=== PATIENT | male | born 1945 | race American Indian/Alaskan Native ===

== ENCOUNTER 2020-07-05 06:04 | Observation (INO) | payer OTHER ==
[2020-07-01 14:25] LABS: Hematocrit 40.3 % (35.5-45.6); Hemoglobin 13.5 gm/dl (11.8-15.2); Mean Corpuscular HGB Conc 34 % (32-34); Mean Corpuscular Volume 89 fl (84-94); Platelet Count 254 K/mm3 (140-440); Red Blood Count 4.52 M/mm3 (3.65-5.03); Red Cell Distribution Width 15.2 % (13.2-15.2)
[2020-07-01 14:43] LABS: Alanine Aminotransferase 19 units/L (7-56); Albumin 4.2 g/dL (3.9-5); BUN/Creatinine Ratio 7; Blood Urea Nitrogen 8 mg/dL (9-20); Calcium 9.3 mg/dL (8.4-10.2); Hemolysis Index 29
[~2020-07-05 06:04] MED LIST: ACETAMINOPHEN 500 MG TAB PO SCH; GABAPENTIN 300 MG CAP PO NR; ceFAZolin/STERILE WATER 2 GM/20 ML SYRINGE IV NR
[2020-07-05] MEDS: LACTATED RINGERS 1,000 ML IV SCH (06:45)
[2020-07-05] MEDS ORDERED: THROMBIN (RECOMBINANT) 5,000 UNIT VIAL TP ONE ×2 (07:31→10:00)
[2020-07-05] MEDS ORDERED: CALCIUM CHLORIDE 1,000 MG/10 ML SYRINGE IV ONE ×2 (07:31→10:00)
[2020-07-05] MEDS ORDERED: CITRIC ACID-SOD CITRATE 500 ML IV ONE (07:31)
[2020-07-05] MEDS ORDERED: METHYLENE BLUE 50 MG/10 ML AMP ONE (07:31)
--- NOTE | 2020-07-05 07:35 | Anesthesia Consultation ---
Anesthesia Consult and Med Hx Date of service: 07/05/20 - Airway Anesthetic Teeth Evaluation: Poor ROM Head & Neck: Adequate Mental/Hyoid Distance: Adequate Mallampati Class: Class II Intubation Access Assessment: Probably Good - Pulmonary Exam CTA: Yes - Cardiac Exam Cardiac Exam: RRR - Pre-Operative Health Status ASA Pre-Surgery Classification: ASA3 Proposed Anesthetic Plan: General - Pulmonary Hx Smoking: Yes (CIGARS 1/DAY) Hx Respiratory Symptoms: No Hx Sleep Apnea: No (BRUNO PRE SCREEN HIGH RISK) - Cardiovascular System Hx Hypertension: Yes (took antihypertensives this morning) Hx Heart Attack/AMI: No Hx Percutaneous Transluminal Coronary Angioplasty (PTCA): No Hx Cardia Arrhythmia: No - Central Nervous System CVA: No Hx Psychiatric Problems: Yes (PTSD) - Gastrointestinal Hx Gastroesophageal Reflux Disease: Yes - Endocrine Hx Renal Disease: Yes (CKD 3; 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 No hx anesthetic complications. Patient has extensive allergy list including multiple antihypertensives. He reports that he does not remember the exact reactions to each medication but that most reactions were either increased breathing or increased BP. No rash, hives, difficulty breathing, tongue/throat swelling, or anaphylactic reactions.
[2020-07-05] MEDS ORDERED: HYDROmorphone 1 MG/1 ML INJ IV PRN (07:36)
--- NOTE | 2020-07-05 07:36 | Anesthesia Day of Surgery ---
Anesthesia Day of Surgery - Day of Surgery Patient Examined: Yes Patient H&P Reviewed: Yes Patient is NPO: Yes
[2020-07-05] MEDS ORDERED: SUCCINYLCHOLINE CHLORIDE 200 MG/10 ML INJ MDV ONE (07:48)
[2020-07-05] MEDS ORDERED: dexAMETHasone 20 MG/5 ML VIAL ONE (07:48)
[2020-07-05] MEDS ORDERED: fentaNYL 100 MCG/2 ML INJ ONE (07:48)
[2020-07-05] MEDS ORDERED: LIDOCAINE MPF (2%) 20 MG/1 ML VIAL 5 ML ONE (07:48)
[2020-07-05] MEDS ORDERED: PHENYLEPHRINE 10 MG/1 ML INJ SDV ONE (07:48)
[2020-07-05] MEDS ORDERED: ONDANSETRON 4 MG/2 ML INJ ONE (07:48)
[2020-07-05] MEDS ORDERED: ROCURONIUM 50 MG/5 ML INJ IV ONE (07:48)
[2020-07-05] MEDS ORDERED: NEOSTIGMINE 10MG/10 ML INJ MDV ONE (07:48)
[2020-07-05] MEDS ORDERED: GLYCOPYRROLATE 0.4 MG/2 ML INJ ONE (07:48)
[2020-07-05] MEDS ORDERED: propofoL 200 MG/20 ML VIAL IV ONE (07:49)
[2020-07-05] MEDS ORDERED: ePHEDrine SULFATE 50 MG/1 ML INJ ONE (08:16)
[2020-07-05] MEDS ORDERED: BUPIVACAINE/PF (0.5%) 5 MG/1 ML 30 ML VIAL INFILTRATI ONE (08:49)
[2020-07-05] MEDS ORDERED: HYDROmorphone 1 MG/1 ML INJ ONE (08:50)
[2020-07-05] MEDS ORDERED: SODIUM CHLORIDE 0.9% IRRIG SOLN 2000 ML IR ONE (10:00)
[2020-07-05] MEDS ORDERED: WATER FOR IRRIG STERILE 1,500 ML BOTTLE IR ONE (10:00)
[2020-07-05] MEDS ORDERED: CITRIC ACID-SOD CITRATE SOLN 500 ML IV SOLN IV ONE (10:00)
[2020-07-05] MEDS ORDERED: LACTATED RINGERS 1,000 ML ONE (10:08)
--- NOTE | 2020-07-05 10:36 | Short Stay Summary ---
Short Stay Documentation Date of service: 07/05/20 - History H&P: obtained from office - Allergies and Medications Current Medications: Allergies clonidine Allergy (Severe, Verified 07/01/20 19:37) Hives RAISES BP,HIVES,AFFECTS NERVES Latex, Natural Rubber Allergy (Severe, Verified 07/01/20 19:37) Hives RASH atenolol Adverse Reaction (Severe, Verified 06/30/20 11:36) Unknown ELEVATES BP flunisolide Adverse Reaction (Severe, Verified 06/30/20 11:36) Unknown hydralazine Adverse Reaction (Severe, Verified 06/30/20 11:36) Unknown ELEVATES BP irbesartan Adverse Reaction (Severe, Verified 06/30/20 11:36) Unknown ELEVATES BP lisinopril Adverse Reaction (Severe, Verified 06/30/20 11:36) Unknown ELEVATES BP nifedipine Adverse Reaction (Severe, Verified 06/30/20 11:36) Unknown ELEVATES BP Penicillins Adverse Reaction (Unknown, Verified 06/30/20 11:25) Unknown ADHESIVES ---PAPER TAPE [place] Allergy (Severe, Uncoded 07/01/20 19:37) Hives HYDROCHLOROTHIAZIDE/TRIAMTERENE Adverse Reaction (Severe, Uncoded 06/30/20 11:36) Unknown ELEVATED BP Home Medications Medication Instructions Recorded Confirmed Last Taken Type Align 1 cap PO Q48HR 06/30/20 07/05/20 07/02/20 09:00 History Amitriptyline 10 mg PO PRN PRN 06/30/20 07/05/20 07/01/20 20:00 History Calcium Citrate/Vitamin D3 1,000 units PO Q48HR 06/30/20 07/05/20 07/02/20 09:00 History Calcium Citrate/Vitamin D3 2,000 units PO Q72HR 06/30/20 07/05/20 07/02/20 09:00 History [Citracal + D Maximum Caplet] Cannabidiol (Cbd) 2 drops PO PRN PRN 06/30/20 07/05/20 07/02/20 09:00 History Fish Oil 1,000 mg PO BID 06/30/20 06/30/20 Unknown History Hydrochlorothiazide 12.5 mg PO DAILY 06/30/20 07/05/20 07/03/20 09:00 History Latanoprost 1 drop OU DAILY 06/30/20 06/30/20 Unknown History Metamucil Powder 3 tsp PO DAILY 06/30/20 07/05/20 07/03/20 09:00 History Methyldopa 250 mg PO BID 06/30/20 07/05/20 07/05/20 04:30 History Omeprazole 40 mg PO BID 06/30/20 07/05/20 07/03/20 09:00 History Allred 1 cap PO Q48HR 06/30/20 07/05/20 07/03/20 09:00 History Potassium 40 meq PO DAILY 06/30/20 07/05/20 07/03/20 09:00 History Simethicone [Gas Relief] 80 mg PO QID PRN 06/30/20 06/30/20 Unknown History Terazosin 2 mg PO BID 06/30/20 06/30/20 Unknown History Tylenol 500 mg PO PRN 06/30/20 06/30/20 Unknown History Vitamin B-12 1,000 mcg PO Q72HR 06/30/20 07/05/20 07/03/20 09:00 History amLODIPine 10 mg PO DAILY 06/30/20 07/05/20 07/05/20 04:30 History Active Medications Acetaminophen (Tylenol) 1,000 mg PO PREOP DINA Stop: 07/05/20 23:01 Last Admin: 07/05/20 06:30 Dose: 1,000 mg Documented by: Cefazolin Sodium (Ancef/Sterile Water 2 Gm/20 Ml) 2 gm IV PREOP NR Stop: 07/05/20 23:02 Gabapentin (Gabapentin) 300 mg PO PREOP NR Stop: 07/05/20 23:01 Last Admin: 07/05/20 06:30 Dose: 300 mg Documented by: Hydromorphone HCl (Dilaudid) 0.5 mg IV Q10MIN PRN PRN Reason: Pain , Severe (7-10) Stop: 07/05/20 22:00 Lactated Ringer's (Lactated Ringers) 1,000 mls @ 100 mls/hr IV DIRECT DINA Stop: 07/05/20 23:59 Last Admin: 07/05/20 06:45 Dose: 100 mls/hr Documented by: - Brief post op/procedure progress note Date of procedure: 07/05/20 Pre-op diagnosis: prostate cancer Post-op diagnosis: same Procedure: robotic prostatectomy Anesthesia: JANETTA Surgeon: MIRANDA WU Estimated blood loss: other (350cc) Pathology: list (prostate) Specimen disposition: to lab Condition: stable - Hospital course Hospital course: norco, bactrim( pt has at home)& post op info on chart dc drain ---done - Disposition Condition at discharge: Stable Short Stay Discharge Plan Follow up with: [facility] [Primary Care Provider] - 7 Days
[2020-07-05] MEDS ORDERED: AMITRIPTYLINE 10 MG PO PRN (10:42)
[2020-07-05] MEDS ORDERED: CANNABIDIOL PO PRN (10:42)
[2020-07-05] MEDS ORDERED: MORPHINE 4 MG/1 ML INJ IV PRN (11:00)
[2020-07-05] MEDS ORDERED: HYDROcodone/ACETAMINOPHEN 5-325 MG TAB PO PRN (11:00)
[2020-07-05] MEDS ORDERED: SIMETHICONE 80 MG CHEW TAB PO PRN (11:00)
[2020-07-05] MEDS ORDERED: KETOROLAC 30 MG/1 ML INJ IV PRN (11:00)
[2020-07-05] MEDS ORDERED: NALOXONE 0.4 MG/1 ML INJ IV PRN (11:00)
[2020-07-05] MEDS ORDERED: ONDANSETRON 4 MG/2 ML INJ IV PRN (11:00)
[2020-07-05] MEDS ORDERED: DEXTROSE 50% IN WATER (25GM) 50 ML SYRINGE IV PRN (11:00)
[2020-07-05] MEDS ORDERED: SODIUM CHLORIDE 0.9% 1000 ML 1,000 ML IV SCH (11:30)
[2020-07-05] MEDS ORDERED: AMITRIPTYLINE 10 MG TAB PO PRN (11:30)
[2020-07-05] MEDS: amLODIPine 10 MG TAB PO SCH (12:00)
[2020-07-05] MEDS ORDERED: OMEGA-3 FATTY ACIDS/FISH OIL 1 GRAM CAP PO SCH (12:00)
[2020-07-05] MEDS ORDERED: SODIUM CHLORIDE 0.9% 1000 ML 1,000 ML ONE (12:12)
--- NOTE | 2020-07-05 12:22 | Post Anesthesia Evaluation ---
- Post Anesthesia Evaluation Patient Participated: Yes Airway Patent: Yes Stable Respiratory Function: Yes Nausea/Vomiting: No Temp > 96.8F: Yes Pain Manageable: Yes Adequeate Hydration: Yes Anesthesia Complications: No
--- NOTE | 2020-07-05 16:20 | Consultation ---
History of Present Illness - Reason for Consult Consult date: 07/05/20 Medical management of blood pressure. Requesting physician: MIRANDA WU - History of Present Illness 75-year-old male with significant history of hypertension prostate cancer. Presents robotic prostatectomy. Patient has symptoms of dysuria and elevated PSA. Taken to surgery by urologist. Patient at bedside tolerated procedure well. No significant pain. No itching no evidence of infection. No chest pain no nausea vomiting. Patient is alert able to eat without difficulty without gricel sea. Patient states pain is tolerable. Patient has had a problem with the blood pressure for quite some time. Recently has been fairly well controlled on oral medications. Patient has extensive allergies to blood pressure medications including atenolol, hydralazine, TIFFANY inhibitors and arms as well as nifedipine. Patient is out of surgery now blood pressure is doing well 117/77. No new changes at this time. Patient denies any concerns resting comfortably after surgery. Past History Past Medical History: other (Prostate cancer.). denies: acute HI, atrial fib, arrhythmia, anemia, hyperthyroidism, PVD, pulmonary embolism Past Surgical History: bowel surgery Social history: , lives with family Family history: no significant family history Medications and Allergies Allergies Allergy/AdvReac Type Severity Reaction Status Date / Time clonidine Allergy Severe Hives Verified 07/01/20 19:37 Latex, Natural Rubber Allergy Severe Hives Verified 07/01/20 19:37 atenolol AdvReac Severe Unknown Verified 06/30/20 11:36 flunisolide AdvReac Severe Unknown Verified 06/30/20 11:36 hydralazine AdvReac Severe Unknown Verified 06/30/20 11:36 irbesartan AdvReac Severe Unknown Verified 06/30/20 11:36 lisinopril AdvReac Severe Unknown Verified 06/30/20 11:36 nifedipine AdvReac Severe Unknown Verified 06/30/20 11:36 Penicillins AdvReac Unknown Unknown Verified 06/30/20 11:25 ADHESIVES ---PAPER TAPE OK Allergy Severe Hives Uncoded 07/01/20 19:37 HYDROCHLOROTHIAZIDE/TRIAMTERENE AdvReac Severe Unknown Uncoded 06/30/20 11:36 Home Medications Medication Instructions Recorded Confirmed Last Taken Type Align 1 cap PO Q48HR 06/30/20 07/05/20 07/02/20 09:00 History Amitriptyline 10 mg PO PRN PRN 06/30/20 07/05/20 07/01/20 20:00 History Calcium Citrate/Vitamin D3 1,000 units PO Q48HR 06/30/20 07/05/20 07/02/20 09:00 History Calcium Citrate/Vitamin D3 2,000 units PO Q72HR 06/30/20 07/05/20 07/02/20 09:00 History [Citracal + D Maximum Caplet] Cannabidiol (Cbd) 2 drops PO PRN PRN 06/30/20 07/05/20 07/02/20 09:00 History Fish Oil 1,000 mg PO BID 06/30/20 06/30/20 Unknown History Hydrochlorothiazide 12.5 mg PO DAILY 06/30/20 07/05/20 07/03/20 09:00 History Latanoprost 1 drop OU DAILY 06/30/20 06/30/20 Unknown History Metamucil Powder 3 tsp PO DAILY 06/30/20 07/05/20 07/03/20 09:00 History Methyldopa 250 mg PO BID 06/30/20 07/05/20 07/05/20 04:30 History Omeprazole 40 mg PO BID 06/30/20 07/05/20 07/03/20 09:00 History Allred 1 cap PO Q48HR 06/30/20 07/05/20 07/03/20 09:00 History Potassium 40 meq PO DAILY 06/30/20 07/05/20 07/03/20 09:00 History Simethicone [Gas Relief] 80 mg PO QID PRN 06/30/20 06/30/20 Unknown History Terazosin 2 mg PO BID 06/30/20 06/30/20 Unknown History Tylenol 500 mg PO PRN 06/30/20 06/30/20 Unknown History Vitamin B-12 1,000 mcg PO Q72HR 06/30/20 07/05/20 07/03/20 09:00 History amLODIPine 10 mg PO DAILY 06/30/20 07/05/20 07/05/20 04:30 History Active Meds: Active Medications Acetaminophen (Tylenol) 1,000 mg PO PREOP DINA Stop: 07/05/20 23:01 Last Admin: 07/05/20 06:30 Dose: 1,000 mg Documented by: Hydrocodone Bitart/Acetaminophen ([place] 5/325) 2 each PO Q4H PRN PRN Reason: Pain, Moderate (4-6) Amitriptyline HCl (Elavil) 10 mg PO QHS PRN PRN Reason: Sleep Amlodipine Besylate (Amlodipine) 10 mg PO DAILY DINA Last Admin: 07/05/20 12:00 Dose: Not Given Documented by: Cefazolin Sodium (Ancef/Sterile Water 2 Gm/20 Ml) 2 gm IV PREOP NR Stop: 07/05/20 23:02 Dextrose (D50w (25gm) Syringe) 50 ml IV Q30MIN PRN; Protocol PRN Reason: Hypoglycemia Fish Oil (Fish Oil) 1,000 mg PO BID DINA Last Admin: 07/05/20 12:13 Dose: Not Given Documented by: Gabapentin (Gabapentin) 300 mg PO PREOP NR Stop: 07/05/20 23:01 Last Admin: 07/05/20 06:30 Dose: 300 mg Documented by: Hydrochlorothiazide (Hctz) 12.5 mg PO QDAY DINA Hydromorphone HCl (Dilaudid) 0.5 mg IV Q10MIN PRN PRN Reason: Pain , Severe (7-10) Stop: 07/05/20 22:00 Lactated Ringer's (Lactated Ringers) 1,000 mls @ 100 mls/hr IV DIRECT DINA Stop: 07/05/20 23:59 Last Admin: 07/05/20 06:45 Dose: 100 mls/hr Documented by: Sodium Chloride (Nacl 0.9% 1000 Ml) 1,000 mls @ 100 mls/hr IV DIRECT DINA Last Admin: 07/05/20 15:12 Dose: 100 mls/hr Documented by: Levofloxacin/Dextrose (Levaquin 500mg/100ml) 500 mg in 100 mls @ 100 mls/hr IV Q24HR DINA; Protocol Insulin Human Regular (Humulin R) 0 unit SUB-Q ACHS DINA; Protocol Ketorolac Tromethamine (Toradol) 15 mg IV Q6H PRN PRN Reason: Pain, Mild (1-3) Stop: 07/10/20 10:59 Latanoprost (Latanoprost 0.005%) 1 drops OU QPM DINA Methyldopa (Aldomet) 250 mg PO BID DINA Morphine Sulfate (Morphine) 4 mg IV Q4H PRN PRN Reason: Pain , Severe (7-10) Naloxone HCl (Naloxone) 0.1 mg IV Q2MIN PRN PRN Reason: Res Rate </= 8 or 02 SAT < 92% Ondansetron HCl (Zofran) 4 mg IV Q8H PRN PRN Reason: Nausea And Vomiting Pantoprazole Sodium (Protonix) 40 mg PO BID [facility] Psyllium Hydrophilic Mucilloid (Metamucil) 1 each PO QDAY [facility] Simethicone (Mylicon) 80 mg PO QID PRN PRN Reason: Indigestion Review of Systems All systems: negative Ears, nose, mouth and throat: no ear discharge, no decreased hearing, no nose pain, no sinus pressure, no dental pain, no mouth pain, no dysphagia, no swelling in mouth, no swelling in throat, no headache, no pain front of neck Cardiovascular: no chest pain, no syncope, no lightheadedness, no dyspnea on exertion, no paroxysmal nocturnal dyspnea, no claudication, no leg edema Respiratory: no dyspnea on exertion, no home oxygen Gastrointestinal: no change in bowel habits, no loss of appetite, no excessive gas, no jaundice, no dyspepsia/bloating Genitourinary Male: dysuria, hematuria, urinary frequency, urinary hesitancy, urinary retention, no decreased libido, no testicular lump, no polyuria, no kidney stones Rectal: no bleeding Musculoskeletal: no neck stiffness, no shooting arm pain, no shooting leg pain, no hot joints, no muscle weakness, no limitation of motion, no arthritis Integumentary: no pruritis, no sores, no blisters, no acne, no unusual bruising, no striae Neurological: no weakness, no seizures, no syncope, no vertigo, no migraines, no convulsions, no change in mentation, no changes in smell/taste, no balance difficulties, no gait dysfunction, no motor disturbance, no double vision, no loss of vision, no hearing difficulties, no burning pain Psychiatric: no memory loss, no change in sleep habits, no change in libido, no suicidal ideation, no disorientation, no hopelessness, no sadness/tearfullness Endocrine: no cold intolerance, no excessive sweating, no deepening of the voice Hematologic/Lymphatic: no easy bruising, no thrombophilia, no other Exam - Constitutional Vitals: Temp Pulse Resp BP Pulse Ox 98.6 F 80 18 136/69 96 07/05/20 14:36 07/05/20 14:00 07/05/20 14:36 07/05/20 14:36 07/05/20 14:00 General appearance: Present: no acute distress, well-nourished - EENT Eyes: Present: PERRL ENT: hearing intact, clear oral mucosa - Neck Neck: Present: supple, normal ROM - Respiratory Respiratory effort: normal Respiratory: bilateral: CTA - Cardiovascular Heart Sounds: Present: S1 & S2. Absent: rub, click - Extremities Extremities: pulses symmetrical, No edema Peripheral Pulses: within normal limits - Abdominal General gastrointestinal: Present: soft, non-tender, non-distended, normal bowel sounds Male genitourinary: Present: normal - Integumentary Integumentary: Present: clear, warm, dry - Musculoskeletal Musculoskeletal: gait normal, strength equal bilaterally - Psychiatric Psychiatric: appropriate mood/affect, intact judgment & insight - Neurologic Neurologic: CNII-XII intact, moves all extremities Results - Labs CBC & Chem 7: 07/01/20 00:01 07/01/20 00:01 Assessment and Plan - Patient Problems (1) Hypertension Current Visit: Yes Status: Acute Plan to address problem: At present patient blood pressure has optimal control after surgery. Will not use any blood pressure medications today. Patient has amlodipine scheduled for the night. Should be able to take medication at night pressure permits. Did discuss with the nurse. Okay to provide blood pressure medications. (2) Prostate cancer Current Visit: Yes Status: Acute Plan to address problem: Possibly scheduled to be discharged tomorrow. Procedure went well. Pain control. Should be to discharge 1 to 2 days. (3) Primary prostate cancer Current Visit: Yes Status: Acute
[2020-07-05] MEDS: OMEGA-3 FATTY ACIDS/FISH OIL 1 GRAM CAP PO SCH (16:31)
[2020-07-05] MEDS: PANTOPRAZOLE 40 MG TAB PO SCH (16:32)
[2020-07-05] MEDS: INSULIN REGULAR, HUMAN 100 UNIT/ML 3ML VIAL SUB-Q SCH ×3 (17:22→23:35)
[2020-07-05] MEDS: METHYLDOPA 250 MG TAB PO SCH (21:31)
[2020-07-05] MEDS ORDERED: METHYLDOPA 250 MG PO SCH (22:00)
[2020-07-05] MEDS ORDERED: NON-FORMULARY EACH (Omeprazole [Omeprazole] 40 MG) PO SCH (22:00)
[2020-07-05] MEDS ORDERED: LATANOPROST 0.005% OPHTH SOLN 2.5 ML OU SCH (22:00)
[2020-07-05] MEDS ORDERED: FISH OIL 1000 MG PO SCH (22:00)
[2020-07-06] MEDS: LACTATED RINGERS 1,000 ML IV SCH (00:36)
[2020-07-06 06:48] LABS: Basophils % (Auto) 0.1 % (0.0-1.8); Hematocrit 34.3 % (35.5-45.6); Hemoglobin 11.5 gm/dl (11.8-15.2); Lymphocytes # (Auto) 0.5 K/mm3 (1.2-5.4); Lymphocytes % (Auto) 5.6 % (13.4-35.0); Mean Corpuscular HGB Conc 34 % (32-34); Mean Corpuscular Volume 89 fl (84-94); Monocytes # (Auto) 0.7 K/mm3 (0.0-0.8); Monocytes % (Auto) 8.1 % (0.0-7.3); Platelet Count 213 K/mm3 (140-440); Red Blood Count 3.85 M/mm3 (3.65-5.03); Red Cell Distribution Width 14.9 % (13.2-15.2)
[2020-07-06 06:58] LABS: BUN/Creatinine Ratio 10; Blood Urea Nitrogen 11 mg/dL (9-20); Calcium 8.2 mg/dL (8.4-10.2); Hemolysis Index 4
[2020-07-06] MEDS: INSULIN REGULAR, HUMAN 100 UNIT/ML 3ML VIAL SUB-Q SCH (08:00)
[2020-07-06] MEDS ORDERED: LATANOPROST OU SCH (10:00)
[2020-07-06] MEDS ORDERED: PSYLLIUM PO SCH (10:00)
[2020-07-06] MEDS ORDERED: NON-FORMULARY EACH (Amlodipine 10 MG) PO SCH (10:00)
[2020-07-06] MEDS ORDERED: NON-FORMULARY EACH (Hydrochlorothiazide 12.5 MG) PO SCH (10:00)
[2020-07-06] MEDS ORDERED: hydroCHLOROthiazide 12.5 MG CAP PO SCH (10:00)
[2020-07-06] MEDS ORDERED: PSYLLIUM SEED (WITH SUGAR) 3.4 GM PACKET PO SCH (10:00)
[2020-07-06 10:34] LABS: Basophils % (Auto) 0.1 % (0.0-1.8); Hematocrit 35.2 % (35.5-45.6); Hemoglobin 11.8 gm/dl (11.8-15.2); Lymphocytes # (Auto) 0.7 K/mm3 (1.2-5.4); Lymphocytes % (Auto) 7.4 % (13.4-35.0); Mean Corpuscular HGB Conc 34 % (32-34); Mean Corpuscular Volume 90 fl (84-94); Monocytes # (Auto) 0.7 K/mm3 (0.0-0.8); Monocytes % (Auto) 7.9 % (0.0-7.3); Platelet Count 216 K/mm3 (140-440); Red Cell Distribution Width 14.8 % (13.2-15.2)
[2020-07-06 10:47] VITALS: BP 121/62
[2020-07-06] MEDS: amLODIPine 10 MG TAB PO SCH (10:48)
[2020-07-06] MEDS: PANTOPRAZOLE 40 MG TAB PO SCH (10:48)
[2020-07-06] MEDS: OMEGA-3 FATTY ACIDS/FISH OIL 1 GRAM CAP PO SCH (10:48)
[2020-07-06] MEDS: METHYLDOPA 250 MG TAB PO SCH (10:50)
[2020-07-06 10:52] LABS: BUN/Creatinine Ratio 11; Blood Urea Nitrogen 11 mg/dL (9-20); Calcium 8.4 mg/dL (8.4-10.2); Hemolysis Index 58
--- NOTE | 2020-07-06 13:41 | Operative Report ---
PREOPERATIVE DIAGNOSIS: Prostate cancer. POSTOPERATIVE DIAGNOSIS: Prostate cancer. PROCEDURE: Robotic-assisted laparoscopic prostatectomy, bladder neck suspension. SURGEON: Leonardo Gómez MD RESEARCH SUPPORT SPECIALIST: Candida Mejia. ANESTHESIA: General. ESTIMATED BLOOD LOSS: 350 mL. FLUIDS: Crystalloid, 150 mL of Cell Saver. COMPLICATIONS: No complications. INDICATIONS: This patient is a 75-year-old gentleman referred from the [facility] for management of his prostate cancer. He underwent prostate ultrasound biopsy and was found to have a [place] 8 adenocarcinoma of the prostate back in 12/2019. Dr. Agarwal did a biopsy. His original PSA was 6.9. We discussed options. The patient agreed to proceed with surgical intervention. Risks, benefits, and complications were explained. DESCRIPTION OF PROCEDURE: The patient was taken to the operative suite, placed in a supine position. After adequate general anesthesia, placed in a modified dorsal lithotomy position, prepped and draped in a sterile fashion. A latex-free Gilliam catheter was placed on the operative field. A 1-cm supraumbilical incision was made. Towel clips were placed. The Garret needle was used for drop test, which was negative. A 0-degree lens was used and was placed in the supraumbilical incision. Opening pressure was 2 cm of water. Insufflation to 15 cm of water was performed without difficulty. Next, from the pubic symphysis, 15 cm cephalad was marked in the midline, 9 cm and an additional 9 cm lateral was marked. The 8 mm robotic ports were placed on the left side under direct vision, and 8 mm followed by 10 and 5 mm helper port was placed on the right side. The patient was then placed in exaggerated Trendelenburg position. Robotic cart was docked between the legs. Second arch was identified. Anterior traction was placed on the bladder. The second arch was scored. Seminal vesicles and vas deferens were dissected out and then dissection to the apex of the prostate. Vas deferens was transected bilaterally. Next, attention was taken to the anterior abdominal wall laterally. Lateral umbilical ligament was scored and then across the midline. Bladder was dropped. Endopelvic fascia was opened bilaterally without difficulty. Dorsal vein complex was controlled with a 45 mm vascular stapler. Dissection was then taken to the bladder neck anteriorly, it was scored exposing the Gilliam catheter that was then deflated and pulled out and used for anterior traction in the abdomen. Posterior bladder neck was dissected. Ureteral orifices could be appreciated bilaterally. Lateral pedicles were controlled with a 60 mm vascular stapler. Attention was taken to the anterior aspect of the prostate, which was then transected exposing the urethra. Gilliam catheter was pulled out and the posterior aspect of the urethra was transected. Prostate was dissected off the rectum without difficulty. I then placed in the EndoCatch bag and retracted laterally. Copious irrigation was performed. Adequate hemostasis was achieved. The integrity of the colon was intact. Next, bladder neck was reconstructed to allow insertion of an 18-[place]jiboutian Gilliam catheter using 2-0 Vicryl in interrupted fashion at the 5 o'clock and 7 o'clock positions. Double armed V-Loc stitch was placed at the 6 o'clock position of the bladder neck as well as the urethra, and a running stitch was performed bilaterally. A new 18-Djiboutian latex-free catheter was placed without difficulty. Clots were evacuated out and 15 mL of sterile water was placed in the balloon. The V-Loc stitch was then used to attach to the posterior aspect of the pubic rami bilaterally for a bladder suspension procedure with gentle tension. Copious irrigation was performed. Adequate hemostasis achieved. Platelet-rich plasma and platelet-poor plasma was injected around the urethra as well as a platelet membrane. A 10 mm Yosvany-Mackay drain was brought out through the 8 mm port on the left side, secured at the skin with a 2-0 silk in interrupted fashion. The patient was then placed in a supine position. The cart was undocked. Supraumbilical incision was extended slightly to allow removal of the prostate in the EndoCatch bag. That incision was then closed with 0 Vicryl in a [id number] fashion. Skin was closed with 2-0 Monocryl in interrupted fashion as well as glue was applied. Gilliam catheter sideport was folded over and a 2-0 silk was used to prevent removal of the fluid. The patient tolerated the procedure well and was extubated and taken to recovery room. He will be observed overnight and go home on Bactrim and Otis. JOB# [id number] MALA/ALFONZO
== END 2020-07-06 13:41 | disposition home or self-care (01) ==
LOC: OR 06:04 → 3A 10:36 → 3B-SURG 13:56
PROVIDERS: ADMIT Urology; ATTEND Urology
DX: C61 Malignant neoplasm of prostate (principal); Z20.828 Contact with and (suspected) exposure to other viral communicable diseases; I10 Essential (primary) hypertension; E11.9 Type 2 diabetes mellitus without complications; F17.210 Nicotine dependence, cigarettes, uncomplicated; I48.91 Unspecified atrial fibrillation; I25.2 Old myocardial infarction; I49.9 Cardiac arrhythmia, unspecified; I73.9 Peripheral vascular disease, unspecified; D64.9 Anemia, unspecified; E05.90 Thyrotoxicosis, unspecified without thyrotoxic crisis or storm; Z86.711 Personal history of pulmonary embolism; Z71.3 Dietary counseling and surveillance; Z79.4 Long term (current) use of insulin; Z68.26 Body mass index [BMI] 26.0-26.9, adult
CPT/HCPCS: 36415; 55866; 80048; 80053; 82962; 85025; 85027; 86850; 86900; 86901; 88309; 96361; 96365; A4217; G0378; J0330; J1100; J1170; J1956; J2370; J2704; J2710; J3010; J7030; J7120; S2900; U0003; J0690; J1815; J2405; Q9968